=== PATIENT | female | born 2000 | race Caucasian/White ===

== ENCOUNTER 2024-07-07 14:05 | Day surgery (SDC) | payer BC ==
[2024-07-07 14:42] VITALS: BMI 32.5
[2024-07-07] MEDS ORDERED: hydrALAZINE 20 MG/ML VIAL SLOW IVP PRN (14:55)
== END 2024-07-07 16:00 | disposition home or self-care (01) ==
LOC: CSHLD/OP 14:05
PROVIDERS: ATTEND Obstetrics & Gynecology
DX: O46.92 Antepartum hemorrhage, unspecified, second trimester (principal); O99.891 Other specified diseases and conditions complicating pregnancy; R10.2 Pelvic and perineal pain; O09.32 Supervision of pregnancy with insufficient antenatal care, second trimester; O99.312 Alcohol use complicating pregnancy, second trimester; F10.10 Alcohol abuse, uncomplicated; O00.01 Abdominal pregnancy with intrauterine pregnancy; O26.842 Uterine size-date discrepancy, second trimester; Z3A.26 26 weeks gestation of pregnancy; Z88.5 Allergy status to narcotic agent; Z79.899 Other long term (current) drug therapy
CPT/HCPCS: 87480; 87510; 87660